=== PATIENT | male | born 1980 | race African-American/Black ===

== ENCOUNTER → 2019-11-20 07:42 | Outpatient (CLI) | payer BC, SELFPAY ==
--- NOTE | ~2019-11-20 | XR_ITS ---
EXAMINATION: XR toe 1st RT min 2V DATE: 11/20/2019 08:03 INDICATION: Persistent right great toe pain after kicking an object 3 weeks prior TECHNIQUE: Dorsal plantar, lateral and oblique views of the right great toe were obtained. COMPARISON: None FINDINGS: Small minimally displaced intra-articular fracture at the dorsal/medial base of the right first dista l phalanx. There is prominent overlying soft tissue swelling. No other fractures identified. Alignmen t remains near-anatomic. Mild osteoarthritis at the first metatarsophalangeal joint. IMPRESSION: Minimally displaced intra-articular fracture at the dorsal/medial base of the right first distal phal anx. Reviewed, dictated and finalized at location A. IMPRESSION: Minimally displaced intra-articular fracture at the dorsal/medial base of the r ight first distal phalanx.
== END ==
PROVIDERS: PCP Nurse Practitioner Family; Visit Provider Nurse Practitioner Family
DX: M79.674 Pain in right toe(s) (principal)
CPT/HCPCS: 73660